=== PATIENT | female | born 1970 | race Caucasian/White ===

== ENCOUNTER 2016-05-13 08:54 | Emergency (ER) | payer BC ==
[2016-05-13 09:20] VITALS: BP 141/84
--- NOTE | 2016-05-13 09:30 | UC ---
Respiratory Complaint HPI - HPI Summary HPI Summary: Cough head congestion fever(subjective) for 1 day - History of Current Complaint Chief Complaint: UCRespiratory Stated Complaint: HEAD/CHEST CONGESTION Time Seen by Provider: 05/13/16 09:19 Hx Obtained From: Patient Hx Last Menstrual Period: ?: No Onset/Duration: Sudden Onset, Lasting Days - 1, Still Present Timing: Constant Pain Intensity: 5 Pain Scale Used: 0-10 Numeric Character: Cough: Nonproductive Aggravating Factors: Nothing Alleviating Factors: Nothing Associated Signs And Symptoms: Positive: Fever - subjective, URI, Nasal Congestion - Allergies/Home Medications Allergies/Adverse Reactions: Allergies Allergy/AdvReac Type Severity Reaction Status Date / Time No Known Allergies Allergy Verified 07/11/15 07:33 PMH/Surg Hx/FS Hx/Imm Hx Previously Healthy: No Endocrine History Of: Denies: Diabetes, Thyroid Disease Cardiovascular History Of: Denies: Cardiac Disorders, Hypertension Respiratory History Of: Reports: Bronchitis - HX OF FREQUENT, NONE FOR SEVERAL YEARS, NO USE OF INHALERS Denies: COPD Comment Only: Asthma - DENIES ASTHMA AND USE OF INHALERS PRESENTLY GI/ History Of: Denies: Ulcer Psychological History Of: Reports: Anxiety, Depression - ON DAILY MEDS - Surgical History Surgical History: Yes Surgery Procedure, Year, and Place: 1990 BREAST AUGMENTATION WITH IMPLANTS, [place], [place]. 2003 CSECTION, [facility] [place]. 2013 CONE BIOPSY OF CERVIX, [facility] [place]. 2016 bilateral breast explant/implant - Family History Known Family History: Positive: Hypertension - Social History Occupation: Employed Full-time Lives: With Family Alcohol Use: Occasionally Alcohol Amount: 1-2 DRINKS PER DAY Substance Use Type: None Smoking Status (MU): Heavy Every Day Tobacco Smoker Type: Cigarettes Amount Used/How Often: 1 ppd Length of Time of Smoking/Using Tobacco: 30 YEARS Have You Smoked in the Last Year: Yes Household Exposure Type: Cigarettes Cessation Counseling: Counseled 3+Min - 10 Min Review of Systems Constitutional: Fever - subjective, Chills Skin: Negative Eyes: Negative ENT: Sore Throat, Nasal Discharge Respiratory: Cough Cardiovascular: Negative Gastrointestinal: Negative Genitourinary: Negative Motor: Negative Neurovascular: Negative Musculoskeletal: Negative Neurological: Negative Psychological: Negative All Other Systems Reviewed And Are Negative: Yes Physical Exam Triage Information Reviewed: Yes Appearance: Ill-Appearing - mild, Pain Distress - mild, Thin Vital Signs: Initial Vital Signs Temp 98.5 F 05/13/16 09:14 Pulse 90 05/13/16 09:14 Resp 18 05/13/16 09:14 BP 141/84 05/13/16 09:14 Pulse Ox 100 05/13/16 09:14 Vital Signs Reviewed: Yes Eye Exam: Normal Eyes: Positive: Conjunctiva Clear ENT Exam: Normal ENT: Positive: Normal ENT inspection, Hearing grossly normal, Pharynx normal, TMs normal. Negative: Nasal congestion, Nasal drainage, Tonsillar swelling, Tonsillar exudate, Trismus, Muffled/hoarse voice Dental Exam: Normal Neck exam: Normal Neck: Positive: Supple, Nontender, No Lymphadenopathy Respiratory Exam: Normal Respiratory: Positive: Chest non-tender, Lungs clear, Normal breath sounds, No respiratory distress, No accessory muscle use Cardiovascular Exam: Normal Cardiovascular: Positive: RRR, No Murmur, Pulses Normal, Brisk Capillary Refill Musculoskeletal Exam: Normal Musculoskeletal: Positive: Strength Intact, ROM Intact, No Edema Neurological Exam: Normal Neurological: Positive: Alert, Muscle Tone Normal Psychological Exam: Normal Skin Exam: Normal UC Diagnostic Evaluation - Laboratory O2 Sat by Pulse Oximetry: 100 Diagnostic Studies Comment: FLU A/B (-) Respiratory Course/Dx - Course Course Of Treatment: nictine cesation support, increase fluids, albuterol, congestant, mucinex, rest follow with pcp - Differential Dx/Diagnosis Differential Diagnosis/HQI/PQRI: Bronchitis, Influenza, Lower Resp Infection, Sinusitis Provider Diagnoses: URI, Viral Illness Discharge - Discharge Plan Condition: Stable Disposition: HOME Patient Education Materials: Decongestant/Expectorant (By mouth), Albuterol ( By breathing), How to Stop Smoking (ED), Cigarette Smoking and Your Health (GEN) , Upper Respiratory Infection (ED) Referrals: [facility] [place] PHYSICIAN REFERRAL [Outside] - If Needed No Primary Care Phys,NOPCP [Primary Care Provider] -
[2016-05-13] MEDS ORDERED: Acetaminophen TAB* 325 MG PO ONE (09:38)
== END 2016-05-13 10:13 | disposition home or self-care (01) ==
LOC: UCEAST 08:54
DX: J06.9 Acute upper respiratory infection, unspecified (principal); B34.9 Viral infection, unspecified; F17.210 Nicotine dependence, cigarettes, uncomplicated; Z71.6 Tobacco abuse counseling
CPT/HCPCS: 87502; 99212; A9270-GY; G0463

== ENCOUNTER 2016-05-16 18:22 | Emergency (ER) | payer BC ==
[2016-05-16 20:15] VITALS: BP 142/95
--- NOTE | 2016-05-16 21:18 | UC ---
Respiratory Complaint HPI - HPI Summary HPI Summary: The patient comes in today for: 1. Cough: Onset: 5 days ago, but it has gotten worse in the last 2 days. Palliative/provocative: Albuterol inhaler helps. Quality: Harsh Region: Lungs. Severity: 3/10 Time: Comes and goes with the albuterol treatment--makes it better. Associated symptoms: Chest pain: None, but she states she has soreness. Cough production: Clear. Rhinitis: None at this time. Previous treatment: She was seen 5 days ago for a cold and given the albuterol inhaler. No other medicines given. Previous inhaler use: She has used only albuterol in the past. Wheezing: Present--that is why she is here. Fever: None. She has Xopenex nebulizer solution at home, but no tubing. * - History of Current Complaint Chief Complaint: UCRespiratory Stated Complaint: COUGH Time Seen by Provider: 05/16/16 21:12 Hx Obtained From: Patient Hx Last Menstrual Period: ?: No - Allergies/Home Medications Allergies/Adverse Reactions: Allergies Allergy/AdvReac Type Severity Reaction Status Date / Time No Known Allergies Allergy Verified 07/11/15 07:33 PMH/Surg Hx/FS Hx/Imm Hx Previously Healthy: No Endocrine History Of: Denies: Diabetes, Thyroid Disease, Hyperthyroidism, Hypothyroidism, Dyslipidemia Cardiovascular History Of: Denies: Cardiac Disorders, Hypertension, Pacemaker/ICD, Myocardial Infarction , Congestive Heart Failure, Atrial Fibrillation, Deep Vein Thrombosis, Bleeding Disorders Respiratory History Of: Reports: Asthma - DENIES ASTHMA AND USE OF INHALERS PRESENTLY, Bronchitis - HX OF FREQUENT episodes, and she has used inhalers in the past. Denies: COPD GI/ History Of: Denies: Gastroesophageal Reflux, Ulcer, Gastrointestinal Bleed, Gall Bladder Disease, Kidney Stones, Diverticulitis, Renal Disease, Urosepsis Neurological History Of: Denies: TIA, CVA, Dementia, Seizures, Migraine Psychological History Of: Reports: Anxiety, Depression - ON DAILY MEDS Denies: Bipolar Disorder, Schizophrenia, Post Traumatic Stress Disorder Cancer History Of: Denies: Lung Cancer, Colorectal Cancer, Breast Cancer, Prostate Cancer, Cervical Cancer Other History Of: Negative For: HIV, Hepatitis B, Hepatitis C, Anticoagulant Therapy - Surgical History Surgical History: Yes Surgery Procedure, Year, and Place: 1990 BREAST AUGMENTATION WITH IMPLANTS, [place], [place]. 2004 CSECTION, [facility] [place]. 2013 CONE BIOPSY OF CERVIX, [facility] [place]. 2016 bilateral breast explant/implant - Family History Known Family History: Positive: Cardiac Disease, Hypertension, Diabetes - Social History Occupation: Employed Full-time Alcohol Use: Occasionally Alcohol Amount: 1-2 DRINKS PER DAY Substance Use Type: None Smoking Status (MU): Heavy Every Day Tobacco Smoker Type: Cigarettes Amount Used/How Often: 1 ppd Length of Time of Smoking/Using Tobacco: 30 YEARS Have You Smoked in the Last Year: Yes Household Exposure Type: Cigarettes Review of Systems Constitutional: Negative Skin: Negative Eyes: Negative ENT: Negative Respiratory: Shortness Of Breath, Cough Cardiovascular: Negative Gastrointestinal: Negative Genitourinary: Negative All Other Systems Reviewed And Are Negative: Yes Physical Exam Triage Information Reviewed: Yes Appearance: Well-Appearing, No Pain Distress, Well-Nourished Vital Signs: Initial Vital Signs Pulse 74 05/16/16 20:11 Resp 18 05/16/16 20:11 BP 142/95 05/16/16 20:11 Pulse Ox 100 05/16/16 20:11 Vital Signs Reviewed: Yes Eyes: Positive: Conjunctiva Clear. Negative: Discharge ENT: Positive: Hearing grossly normal. Negative: Pharyngeal erythema, Nasal congestion, Nasal drainage, TM bulging, TM dull, TM red, Tonsillar swelling, Tonsillar exudate Dental: Negative: Gross Decay/Caries @, Dental Fracture @ Neck: Positive: Supple, Nontender, No Lymphadenopathy. Negative: Nuchal Rigidity Respiratory: Positive: Chest non-tender, No respiratory distress, No accessory muscle use. Negative: Lungs clear, Rhonchi, Wheezing Cardiovascular: Positive: RRR - Heart tones were distant., No Murmur Abdomen Description: Positive: Nontender, No Organomegaly, Soft. Negative: Distended, Guarding Musculoskeletal: Positive: Strength Intact, ROM Intact, No Edema. Negative: Strength Limited @ Neurological: Positive: Alert, Muscle Tone Normal Psychological: Positive: Age Appropriate Behavior, Consolable Skin: Negative: rashes UC Diagnostic Evaluation - Laboratory O2 Sat by Pulse Oximetry: 100 Respiratory Course/Dx - Course Course Of Treatment: Patient was told to continue her albuterol inhaler or the Xopenex--one or the other--not both along with the Atrovent and the Pulmicort 180 inhaler. She is to see her primary care provider or us by the middle of next week to see how well she is doing. - Differential Dx/Diagnosis Differential Diagnosis/HQI/PQRI: Asthma, Bronchitis, Sinusitis Provider Diagnoses: COPD exacerbation. Discharge - Discharge Plan Condition: Stable Disposition: HOME Patient Education Materials: COPD (Chronic Obstructive Pulmonary Disease) (ED) Referrals: No Primary Care Phys,NOPCP [Primary Care Provider] - 1 Week (Please see your primary care provider in about three days to see how well you are doing. If you don't have a primary care provider, please contact the physician referral service. If you can't get in timely, please you may come back to see us until you can. If you get worse, please be seen sooner by us or the ER.)
== END 2016-05-16 21:34 | disposition home or self-care (01) ==
LOC: UCEAST 18:22
DX: J44.9 Chronic obstructive pulmonary disease, unspecified (principal); F17.290 Nicotine dependence, other tobacco product, uncomplicated
CPT/HCPCS: 99212; G0463

== ENCOUNTER 2016-09-14 07:40 | Emergency (ER) | payer BC ==
[2016-09-14] MEDS ORDERED: Albuterol 2.5 MG/3 ML NEB.SOL* (0.083%) INH ONE (07:54)
[2016-09-14] MEDS ORDERED: Ipratropium 0.5MG/2.5ML NEB* 0.5 MG/2.5 ML NEB.SOLN INH ONE (07:54)
[2016-09-14] MEDS ORDERED: methylPREDNISolone 125 MG* 2 ML VIAL IM ONE (07:54)
[2016-09-14 09:01] VITALS: BP 138/78
--- NOTE | 2016-10-18 22:20 | UC ---
Heladio Cunningham Benjamin, scribed for Sigrid Somers DO on 09/14/16 at 0856 . Shortness of Breath HPI - HPI Summary HPI Summary: 45yo female started with a cold like symptoms since Wednesday. Pt reports SOB, dry cough, body aches, wheezing, and burning in nose and throat. Pt took albuterol this morning. Pt has hx of asthma with bronchitis, and endometriosis. Pt also reports chronic pain from her endometriosis. - History of Current Complaint Chief Complaint: UCRespiratory Stated Complaint: SOB Time Seen by Provider: 09/14/16 07:54 Hx Obtained From: Patient Hx Last Menstrual Period: ?: No Onset/Duration: Gradual Onset, Lasting Days, Still Present Timing: Constant Current Severity: Mild Aggrevating Factors: Nothing Alleviating Factors: Nothing Associated Signs & Symptoms: Positive: Cough (Nonproductive) - dry, Wheezing, Chest Pain w/Cough - Allergy/Home Medications Allergies/Adverse Reactions: Allergies Allergy/AdvReac Type Severity Reaction Status Date / Time No Known Allergies Allergy Verified 09/14/16 08:02 Home Medications: Home Medications Albuterol HFA INHALER* [Ventolin HFA Inhaler*] 1 puff INH Q4H PRN 09/14/16 [ History Confirmed 09/14/16] PMH/Surg Hx/FS Hx/Imm Hx Respiratory History: Asthma, Bronchitis Other History Of: Negative For: HIV, Hepatitis B, Hepatitis C, Anticoagulant Therapy - Surgical History Surgical History: Yes Surgery Procedure, Year, and Place: 1990 BREAST AUGMENTATION WITH IMPLANTS, [place], [place]. 2003 CSECTION, [facility] [place]. 2012 CONE BIOPSY OF CERVIX, [facility] [place]. 2016 bilateral breast explant/implant - Family History Known Family History: Positive: Cardiac Disease, Hypertension, Diabetes - Social History Occupation: Employed Full-time Lives: With Family Alcohol Use: Weekly Alcohol Amount: 1-2 DRINKS PER DAY Substance Use Type: None Smoking Status (MU): Heavy Every Day Tobacco Smoker Type: Cigarettes Amount Used/How Often: 1 ppd Length of Time of Smoking/Using Tobacco: 30 YEARS Have You Smoked in the Last Year: Yes Household Exposure Type: Cigarettes Cessation Counseling: Patient Advised to Stop Review of Systems Constitutional: Negative Skin: Negative Eyes: Negative ENT: Sore Throat, Nasal Discharge Respiratory: Shortness Of Breath, Cough Cardiovascular: Negative Gastrointestinal: Negative Genitourinary: Negative Motor: Negative Neurovascular: Negative Musculoskeletal: Negative Neurological: Negative Psychological: Negative All Other Systems Reviewed And Are Negative: Yes Physical Exam Triage Information Reviewed: Yes Appearance: Well-Appearing, No Pain Distress, Well-Nourished Vital Signs: Initial Vital Signs Temp 99.2 F 09/14/16 07:45 Pulse 99 09/14/16 07:45 Resp 20 09/14/16 07:45 BP 127/79 09/14/16 07:45 Pulse Ox 97 09/14/16 07:45 Vital Signs Reviewed: Yes Eyes: Positive: Conjunctiva Clear. Negative: Discharge ENT: Positive: Hearing grossly normal, Pharynx normal, TMs normal. Negative: Tonsillar swelling, Muffled/hoarse voice Neck exam: Normal Neck: Positive: Supple Respiratory: Positive: Lungs clear, No respiratory distress, No accessory muscle use, Wheezing - diffuse wheezing Cardiovascular: Positive: RRR, No Murmur Musculoskeletal Exam: Normal Musculoskeletal: Positive: Strength Intact, ROM Intact Neurological: Positive: Alert, Muscle Tone Normal Psychological: Positive: Age Appropriate Behavior Skin Exam: Normal Skin: Negative: rashes Re-Evaluation - Re-Evaluation First Eval Re-Evaluation Time: 08:55 Change: Improved - s/p nebulizer and solumedrol. Significant improvement in air movement. Subjective improvement in symptoms. But diffuse wheezing persist. Shortness of Breath Dx - Differential Dx/Diagnosis Differential Diagnosis/HQI/PQRI: Asthma, Bronchitis, COPD Exacerbation, Pneumonia Provider Diagnoses: bronchitis Discharge - Discharge Plan Condition: Stable Disposition: HOME Prescriptions: Albuterol HFA INHALER* [Ventolin HFA Inhaler*] 2 puff INH Q4H PRN #1 mdi PRN Reason: Sob/Wheezing DOXYcycline CAP(*) [DOXYcycline 100MG CAP(*)] 100 mg PO BID #20 cap guaiFENesin ER TAB [Mucinex*] 600 mg PO BID PRN #1 box PRN Reason: Cough guaiFENesin/CODIEN 100MG-10MG* [Robitussin AC 100Mg-10Mg*] 5 - 10 ml PO BEDTIME PRN #100 udc MDD 10ml PRN Reason: Cough predniSONE TAB* [Deltasone TAB*] 40 mg PO DAILY #8 tab Patient Education Materials: Acute Bronchitis (ED) Referrals: No Primary Care Phys,NOPCP [Primary Care Provider] - Additional Instructions: INHALED BRONCHODILATORS:USE EVERY 4 HOURS HOURS WHILE AWAKE. You have received a prescription for an inhaled bronchodilator -- a medication which stimulates the airways in the lung to dilate. This improves the flow of air in asthma, bronchitis, and emphysema. These medicines have some similarity to adrenaline, and can cause similar side effects: shakiness, racing heart, and a sense of nervousness. These side effects decrease with time. Contact your doctor if these side effects are severe. Do not over-use the medicine. Too-frequent use of the inhaler may make it ineffective. Call your doctor if the inhaler is not controlling your symptoms at the prescribed doses. COUGH-SUPPRESSANT & EXPECTORANT MEDICATION: You are to use a cough medication as needed for relief of symptoms. This medicine is a combination of an expectorant (to make the mucous thinner and more easily "coughed up") and a cough suppressant (to reduce the frequency of coughing). The cough-suppressant medicine is related to narcotics. You may experience mild nausea and sleepiness. Some patients who are very sensitive to narcotics may have stomach pain from this medicine. Taking the medicine with food reduces these side effects. Do not drive or work with machinery until you know how this medicine affects you. The expectorant should have no side effects. Iodine-containing expectorants (such as organidin) should not be taken by persons with active thyroid disease unless approved by your doctor. Call the doctor if you develop shortness of breath, hives, rash, itching, lightheadedness, or severe nausea and vomiting. EXPECTORANT MEDICATION: WE SENT IN A SCRIPT FOR MUCINEX SO THAT IT IS EASIER FOR YOU TO PICK THE RIGHT MED AT THE PHARMACY. HOWEVER, YOU CAN ALSO GO TO THE [employer] AND BUY PLAIN GUAIFENESIN WITHOU BINDERS OR FILLERS. An expectorant medicine has been prescribed. This type of drug makes mucous thinner, helping the sinuses, nose, and bronchial tubes to remain free of pus and mucous. Expectorants make a cough less severe and more comfortable, and help infected sinuses drain. In general, antihistamines defeat the purpose of the expectorant by making mucous thicker. They should be avoided unless specifically recommended by your physician. CORTICOSTEROID MEDICATION: You have been given a medicine of the cortisone class. This medication is used to control inflammation or allergy. It is usually only given for a short period of time, until the acute process subsides. There are usually no side effects from short-term use of cortisone-like medications. Some persons feel an increased sense of well-being and are not sleepy at bedtime. Long-term use of cortisone medications is best avoided, unless required for a severe condition. If your condition does not remit, or relapses after the course of corticosteroid medication, you should consult your physician. Contact the physician if you develop lightheadedness, black or tarry stools , swelling of the legs, or significant rapid change in weight. FOLLOW-UP CARE: You should establish with a private physician for follow-up care. If you are unable to get a timely appointment, or if you are worsening, call us or return for re-evaluation. An additional resource available to assist in finding the appropriate physician for your health care needs is the Physician Referral Center. You may contact them by calling [phone]. The documentation as recorded by the Heladio tay Benjamin accurately reflects the service I personally performed and the decisions made by , Sigrid Somers DO.
== END 2016-09-14 09:17 | disposition home or self-care (01) ==
LOC: UCEAST 07:40
DX: J40 Bronchitis, not specified as acute or chronic (principal); F17.210 Nicotine dependence, cigarettes, uncomplicated
CPT/HCPCS: 96372; 99213; G0463; J2930; J7644

== ENCOUNTER 2018-10-25 12:23 | Emergency (ER) | payer BC ==
[2018-10-25 12:42] VITALS: BP 100/99
--- NOTE | 2018-10-25 13:10 | UC ---
Skin Complaint HPI - HPI Summary HPI Summary: 48-year-old woman comes in with a chief complaint of a rash. On her left forearm she started with a raised circular scaling rash on October 12, 2018. To be treating with antifungals and is getting better. She also has been having intermittent punctate areas of skin irritation that she treats with the antifungal and they go away right away. She did abruptly stopped her Lamictal on October 12, 2018. She was on 150 mg a day. She was off of it for 5 days when she discussed with her primary care doctor said that she needed to wean herself off. She is now on 75 mg a day. Patient feels well no change in bowel or bladder. No scleral icterus. - History of Current Complaint Chief Complaint: UCRash Time Seen by Provider: 10/25/18 12:52 Stated Complaint: RASH Hx Last Menstrual Period: Pain Intensity: 0 - Allergy/Home Medications Allergies/Adverse Reactions: Allergies Allergy/AdvReac Type Severity Reaction Status Date / Time No Known Allergies Allergy Verified 10/25/18 12:42 PMH/Surg Hx/FS Hx/Imm Hx Previously Healthy: Yes Psychological History: Anxiety Other History Of: Negative For: HIV, Hepatitis B, Hepatitis C, Anticoagulant Therapy - Surgical History Surgical History: Yes Surgery Procedure, Year, and Place: 1990 BREAST AUGMENTATION WITH IMPLANTS, [place], [place]. 2003 CSECTION, [facility] [place]. 2012 CONE BIOPSY OF CERVIX, [facility] [place]. 2016 bilateral breast explant/implant - Family History Known Family History: Positive: Cardiac Disease, Hypertension, Diabetes - Social History Alcohol Use: Daily Alcohol Amount: 1-2 DRINKS PER DAY Substance Use Type: None Smoking Status (MU): Heavy Every Day Tobacco Smoker Type: Cigarettes Amount Used/How Often: 1 ppd Length of Time of Smoking/Using Tobacco: 30 YEARS Have You Smoked in the Last Year: Yes Household Exposure Type: Cigarettes Review of Systems All Other Systems Reviewed And Are Negative: Yes Constitutional: Positive: Negative Skin: Positive: Other - SEE HPI Eyes: Positive: Negative ENT: Positive: Negative Respiratory: Positive: Negative Cardiovascular: Positive: Negative Gastrointestinal: Positive: Negative Motor: Positive: Negative Neurovascular: Positive: Negative Musculoskeletal: Positive: Negative Neurological: Positive: Negative Psychological: Positive: Negative Is Patient Immunocompromised?: No Physical Exam Triage Information Reviewed: Yes Appearance: Well-Appearing, No Pain Distress, Well-Nourished Vital Signs: Initial Vital Signs Temp 98.6 F 10/25/18 12:36 Pulse 83 10/25/18 12:36 Resp 18 10/25/18 12:36 BP 100/99 10/25/18 12:36 Pulse Ox 100 10/25/18 12:36 Vital Signs Reviewed: Yes Eye Exam: Normal Eyes: Positive: Conjunctiva Clear Neck: Positive: Supple Respiratory: Positive: No respiratory distress Musculoskeletal: Positive: Strength Intact, ROM Intact Neurological Exam: Normal Neurological: Positive: Alert, Muscle Tone Normal Psychological: Positive: Normal Response To Family, Age Appropriate Behavior Skin: Positive: Other - On the left forearm there is a 2 and half centimeter diameter slightly raised scaly erythematous rash. Course/Dx - Course Course Of Treatment: Besides the rash patient feels well otherwise. The rash on the left forearm is consistent with ringworm and it is improving on it with an antifungal therefore we will continue the antifungal. Follow-up with dermatology if not completely improved. - Diagnoses Provider Diagnosis: Rash Discharge - Sign-Out/Discharge Documenting (check all that apply): Patient Departure All imaging exams completed and their final reports reviewed: No Studies - Discharge Plan Condition: Stable Disposition: HOME Prescriptions: Butenafine HCl 1 applic TOPICAL BID #30 gm Patient Education Materials: Tinea Corporis (ED), Acute Rash (ED) Referrals: [facility] [place]YS[facility]IAN REFERRAL [Outside] Domo Barnes MD [Medical Doctor] - Additional Instructions: FOLLOW UP WITH DERMATOLOGY IF NOT COMPLETELY IMPROVED. GET RECHECKED SOONER IF YOUR CONDITION WORSENS OR ANY QUESTIONS OR CONCERNS. - Billing Disposition and Condition Condition: STABLE Disposition: Home
== END 2018-10-25 13:14 | disposition home or self-care (01) ==
LOC: UCEAST 12:23
DX: R21 Rash and other nonspecific skin eruption (principal); F17.210 Nicotine dependence, cigarettes, uncomplicated; F41.9 Anxiety disorder, unspecified
CPT/HCPCS: 99212; G0463